=== PATIENT | female | born 1960 | race Caucasian/White ===

== ENCOUNTER → 2016-06-08 | Outpatient (CLI) | payer BC ==
[~2016-06-08] VITALS: Ht 172.7 cm; Wt 163.2 kg
[~2016-06-08] MED LIST: ASCO500T3 PO; ASPI-435 PO; CHOL100010 PO; CLR10 PO; CYAN1LOZ2 PO; FISHOIL PO; HYDR12.56 PO; LEVO200T6 PO; LISI-461 PO; METF500T PO; MULT-506 PO; NIAC500T7 PO; PANT40TA PO; PRAM0.129 PO; PRAV80TA2 PO; RANI300T2 PO; TRAM-10 PO; VITACAP36 PO; ZLF/100 PO
[2016-06-08 15:45] VITALS: BP 147/86; PULSE 116; Ht 172.7 cm; Wt 163.2 kg
== END | disposition home or self-care (01) ==
LOC: C.NEUR 14:28
PROVIDERS: ATTEND Internal Medicine Pulmonary Disease
DX: G47.33 Obstructive sleep apnea (adult) (pediatric) (principal)

== ENCOUNTER → 2016-07-08 | Outpatient (CLI) | payer BC ==
--- NOTE | 2016-07-08 14:42 | MAMMOGRAPHY REPORT ---
BILATERAL DIGITAL SCREENING MAMMOGRAM TOMOSYNTHESIS WITH CAD: 07/08/2016 CLINICAL HISTORY: Routine screening. Patient has no complaints. TECHNIQUE: Breast tomosynthesis in addition to standard 2D mammography was performed. Current study was also evaluated with a Computer Aided Detection (CAD) system. COMPARISON: Comparison is made to exams dated: 07/05/2015 mammogram, 07/03/2014 mammogram, 05/04/2013 m ammogram, 05/03/2012 mammogram, 04/28/2011 mammogram, and 09/05/2009 mammogram - [facility] enter. BREAST COMPOSITION: The tissue of both breasts is almost entirely fatty. FINDINGS: No suspicious masses, calcifications, or areas of architectural distortion are noted in e ither breast. There has been no significant interval change compared to prior exams. Small bilatera l circumscribed benign-appearing masses are not significantly changed compared to prior exams. IMPRESSION: ACR BI-RADS CATEGORY 2: BENIGN There is no mammographic evidence of malignancy. A 1 year screening mammogram is recommended. The p atient will receive written notification of the results. Approximately 10% of breast cancers are not detected with mammography. A negative mammographic repor t should not delay biopsy if a clinically suggestive mass is present. Anusha Shoemaker M.D. ah/:07/08/2016 10:15:35 Transitional Living Specialist: Slime HENSON)(), [facility] letter sent: Normal 1/2 BI-RADS Code: ACR BI-RADS Category 2: Benign
== END | disposition home or self-care (01) ==
LOC: C.MAMM 08:51
PROVIDERS: ATTEND Physician Assistant
DX: Z12.31 Encounter for screening mammogram for malignant neoplasm of breast (principal)

== ENCOUNTER → 2017-07-12 | Outpatient (CLI) | payer OTHER ==
[~2017-07-12] MED LIST changes: +PRAM0.1212 PO; -PRAM0.129 PO
--- NOTE | 2017-07-13 07:40 | MAMMOGRAPHY REPORT ---
BILATERAL DIGITAL SCREENING MAMMOGRAM TOMOSYNTHESIS WITH CAD: 07/12/2017 CLINICAL HISTORY: Routine screening. Patient has no complaints. TECHNIQUE: Breast tomosynthesis in addition to standard 2D mammography was performed. Current study was also evaluated with a Computer Aided Detection (CAD) system. COMPARISON: Comparison is made to exams dated: 07/08/2016 mammogram, 07/05/2015 mammogram, 07/03/2014 grant mogram, 05/04/2013 mammogram, 05/03/2012 mammogram, and 04/28/2011 mammogram - [facility]. BREAST COMPOSITION: The tissue of both breasts is almost entirely fatty. FINDINGS: There are multiple bilateral circumscribed subcentimeter masses in the breasts, which is a typically benign mammographic pattern. No suspicious spiculated or irregular mass, architectural dist ortion or cluster of suspicious microcalcifications is seen. IMPRESSION: ACR BI-RADS CATEGORY 1: NEGATIVE There is no mammographic evidence of malignancy. A 1 year screening mammogram is recommended. The pa tient will receive written notification of the results. Approximately 10% of breast cancers are not detected with mammography. A negative mammographic report should not delay biopsy if a clinically suggestive mass is present. Roxi Kim M.D. ay/:07/12/2017 13:21:16 [employer] Healer: Sandra HENSON)(M), [facility] letter sent: Normal 1/2 BI-RADS Code: ACR BI-RADS Category 1: Negative
== END | disposition home or self-care (01) ==
LOC: C.MAMM 08:52
PROVIDERS: ATTEND Family Medicine
DX: Z12.31 Encounter for screening mammogram for malignant neoplasm of breast (principal)

== ENCOUNTER 2019-10-10 05:13 | Inpatient (IN) ==
--- NOTE | 2019-09-21 11:31 | PAT Medication Instructions ---
Medication Instructions Date of Service September 21, 2019 Home Medications Medication Instructions Recorded miscellaneous medical supply #1 ea 01/18/19 levothyroxine 150 mcg PO QAM metformin 500 mg PO BID [Women's 50 Plus Multivitamin] 1 tab PO QPM omega-3 fatty acids-fish oil [Fish Oil] 1 cap PO QPM ropinirole 3 mg PO HS rosuvastatin 40 mg PO HS sertraline 100 mg PO HS vitamin E 400 unit PO QPM ascorbic acid (vitamin C) 500 mg tablet 500 mg PO QPM cyanocobalamin (vitamin B-12) 100 mcg tablet 500 mcg PO QPM acetaminophen [Tylenol Extra Strength] 1,000 mg PO Q6H PRN cholecalciferol (vitamin D3) 50 mcg PO QPM chromium picolinate 500 mcg PO QPM ibuprofen [Advil] 600 mg PO Q6H PRN losartan 25 mg PO HS methyl salicylate-menthol [Icy Hot] 1 applic TOPICAL HS PRN omeprazole 20 mg PO QAM ASK your surgeon for instructions ibuprofen [Advil] 600 mg PO Q6H PRN STOP taking 2 weeks before surgery If surgery is within 2 weeks, stop taking as soon as possible. omega-3 fatty acids-fish oil [Fish Oil] 1 cap PO QPM vitamin E 400 unit PO QPM chromium picolinate 500 mcg PO QPM STOP taking 24 hours before surgery methyl salicylate-menthol [Icy Hot] 1 applic TOPICAL HS PRN DO NOT take the morning of surgery metformin 500 mg PO BID Take morning of surgery With a small sip of water, OTHERWISE NOTHING TO EAT OR DRINK AFTER MIDNIGHT: levothyroxine 150 mcg PO QAM acetaminophen [Tylenol Extra Strength] 1,000 mg PO Q6H PRN (if needed, may be taken up to four hours before surgery) omeprazole 20 mg PO QAM Take evening before surgery metformin 500 mg PO BID [Women's 50 Plus Multivitamin] 1 tab PO QPM rosuvastatin 40 mg PO HS sertraline 100 mg PO HS ascorbic acid (vitamin C) 500 mg tablet 500 mg PO QPM cyanocobalamin (vitamin B-12) 100 mcg tablet 500 mcg PO QPM acetaminophen [Tylenol Extra Strength] 1,000 mg PO Q6H PRN (if needed) cholecalciferol (vitamin D3) 50 mcg PO QPM losartan 25 mg PO HS Other Notes If you have any questions please call us at [phone] or [phone] or [phone] or [phone]
--- NOTE | 2019-09-21 12:05 | Anesthesiology Consultation ---
Date of Service September 21, 2019 Assessment & Plan (1) Encounter for pre-operative examination: COVID Status: As of 09/19 nurse assessment, patient denies travel to endemic area, known exposure/sick contacts, or symptoms of COVID19. Preoperative COVID19 testing to be completed at [facility] prior to surgery. BSG AM DOS Chart Review Chart Review: Acceptable Risk for Surgery (pending surgeon-ordered PCP clearance) and Patient seen in Pre Admission Testing Teaching & Discussion Instructed NPO after midnight before surgery, except medications with 15 cc of water. Medication instructions provided according to the PAT guidelines. History Surgery Operation Date: 10/10/19 09:50 Proposed Procedures p Left Total Knee Arthroplasty - Richard Christine Smart MD Height/Weight Height: 5 ft 8 in Weight: 180 kg Allergies Allergy/AdvReac Type Severity Reaction Status Date / Time morphine Allergy Severe RESPIRATORY Verified 09/20/19 14:41 DISTRESS/KIDNEY FAILURE oxycodone Allergy Severe RESPIRATORY Verified 09/20/19 14:41 DISTRESS/KIDNEY FAILURE Penicillins Allergy Intermediate HIVES Verified 09/20/19 14:41 Corticosteroids Allergy Unknown FLUSHED Verified 09/20/19 14:41 (Glucocorticoids) levofloxacin [From Levaquin] Allergy Unknown Unknown Verified 09/20/19 14:41 dexamethasone AdvReac Mild flushed Verified 09/20/19 14:41 Medications Home Medications Medication Instructions Recorded Confirmed Last Taken levothyroxine 150 mcg PO QAM 11/03/18 09/20/19 11/03/18 metformin 500 mg PO BID 11/03/18 09/20/19 11/02/18 cd-sal-[id number]-calcium carb-K1 1 tab PO QPM 11/03/18 09/20/19 11/02/18 [Women's 50 Plus Multivitamin] omega-3 fatty acids-fish oil [Fish 1 cap PO QPM 11/03/18 09/20/19 11/02/18 Oil] ropinirole 3 mg PO HS 11/03/18 09/20/19 11/02/18 rosuvastatin 40 mg PO HS 11/03/18 09/20/19 11/02/18 sertraline 100 mg PO HS 11/03/18 09/20/19 11/02/18 vitamin E 400 unit PO QPM 11/03/18 09/20/19 11/02/18 ascorbic acid (vitamin C) 500 mg 500 mg PO QPM tab 01/18/19 09/20/19 Unknown tablet cyanocobalamin (vitamin B-12) 100 500 mcg PO QPM tab 01/18/19 09/20/19 Unknown mcg tablet miscellaneous medical supply #1 ea 01/18/19 04/10/19 Unknown acetaminophen [Tylenol Extra 1,000 mg PO Q6H PRN 09/20/19 09/20/19 Unknown Strength] cholecalciferol (vitamin D3) 50 mcg PO QPM 09/20/19 09/20/19 Unknown [Vitamin D3] chromium picolinate 500 mcg PO QPM 09/20/19 09/20/19 Unknown ibuprofen [Advil] 600 mg PO Q6H PRN 09/20/19 09/20/19 Unknown losartan 25 mg PO HS 09/20/19 09/20/19 Unknown methyl salicylate-menthol [Icy Hot] 1 applic TOPICAL HS PRN 09/20/19 09/20/19 Unknown omeprazole 20 mg PO QAM 09/20/19 09/20/19 Unknown Past Medical History Medical History Anxiety (Chronic) Arthritis Bilateral lower extremity edema (Acute) Chronic back pain Diabetes mellitus, type 2 GERD (gastroesophageal reflux disease) Headache (Acute) HTN (hypertension) (Chronic) Hx pulmonary embolism In her late 20s, 2/2 OCPs Post-surgical hypothyroidism (Chronic) 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 RIGHT LOBE Restless leg Sleep apnea CPAP SOB (shortness of breath) on exertion 1 FLIGHT STAIRS Temporomandibular joint disorder RIGHT, CLICKS HAS NEVER LOCKED Exercise / Class Metabolic Activity III < 4 Walking/Shop/Light housework (+SOB with minimal activity 2/2 obesity and pain, denies chest pain) Past Family History Family History Mother Family history of diabetes mellitus Past Surgical History Surgical History History of bladder surgery SLING History of cardiac cath MANY YRS AGO-NO STENTS-DX'D GERD History of colonoscopy History of esophagogastroduodenoscopy (EGD) History of hysterectomy TOTAL History of tonsillectomy and adenoidectomy History of total knee replacement RIGHT Past Anesthesia History No Hx of Anesthesia Complications and No Family Hx of Anesthesia Complications History of PONV No Hx of PONV and No Hx of Motion Sickness Social History Smoking Status: Never smoker Do You Dip or Chew Tobacco: No Hx Alcohol Use: No Hx Substance Use: No Review of Systems Pt denies any recent chest pain, shortness of breath above baseline, palpitations, cough, fever or URI. Physical Exam Vital Signs BP: 139/85 P: 78bpm SPO2: 95% RA T: 98.1 F R: 18 Constitutional + morbidly obese ENMT Mouth: no chipped teeth and no loose teeth Thyromental Distance: > or= 3.5 Finger Breadths (4) Mallampati Class: II Crowded/narrow posterior oropharynx. Neck + short neck and + thick neck (very); neck extension not limited Respiratory normal respiratory effort Auscultation: lungs clear to auscultation bilaterally Cardiovascular Rate/Rhythm: regular rate and regular rhythm Heart Sounds: no murmur Extremities: + edema (B/L 1+ nonpitting) Testing Laboratory Results 09/21/19 12:16 09/21/19 12:16 PT 11.0 Seconds (9.0-12.0) 09/21/19 12:16 INR 1.0 (0.9-1.1) 09/21/19 12:16 APTT 27.9 Seconds (21.0-31.0) 09/21/19 12:16 Blood Type O Positive 09/21/19 12:16 Antibody Screen NEGATIVE 09/21/19 12:16 A1C 6.8% on 09/06/19 Electrocardiogram Date: 11/03/18 Findings: + NSR @ (78bpm) and + no change from (09/04/17) Chest X-Ray Date: 11/03/18 Findings: + NAD
[2019-09-21 13:10] LABS: Partial Thromboplastin Time 27.9 Seconds (21.0-31.0)
[2019-09-21 13:24] LABS: Basophils # (auto) 0.01 K/uL (0-0.2); Basophils % (auto) 0.1 %; Eosinophils # (auto) 0.19 K/uL (0-0.5); Eosinophils % (auto) 2.5 %; Hematocrit (blood only) 40.3 % (37-47); Hemoglobin 13.1 g/dL (12.0-16.0); Immature Granulocytes # (auto) 0.02 K/uL (0.00-0.02); Immature Granulocytes % (auto) 0.3 %; Lymphocytes # (auto) 1.61 K/uL (1.2-3.4); Lymphocytes % (auto) 21.6 %; Mean Corpuscular Hemoglobin 30.3 pg (25-34); Mean Corpuscular Hgb Conc 32.5 g/dL (32-36); Mean Corpuscular Volume 93.3 fL (80-100); Mean Platelet Volume 10.2 fL (7.4-10.4); Monocytes # (auto) 0.54 K/uL (0.11-0.59); Monocytes % (auto) 7.2 %; Neutrophils % (auto) 68.3 %; Platelet Count 184 K/uL (130-400); RDW Coefficient of Variation 14.4 % (11.5-14.5); RDW Standard Deviation 49.3 fL (36.4-46.3); Red Blood Count 4.32 M/uL (4.2-5.4); White Blood Count 7.47 K/uL (4.8-10.8)
[2019-09-21 16:06] LABS: Albumin Level 3.7 gm/dl (3.4-5.0); BUN Creatinine Ratio 17.7 (10-20); Bilirubin Direct 0.1 mg/dl (0-0.2); Calcium 8.9 mg/dl (8.5-10.1); Creatinine Clr Calc Pharmacy 78.2 ml/min; Est GFR (African American) 49.7; Est GFR (Non-African American) 42.9; Potassium 4.4 mmol/L (3.5-5.1)
[2019-09-21 16:07] LABS: Bilirubin,Total 0.4 mg/dl (0.2-1); Total Protein 7.5 gm/dl (6.4-8.2)
[2019-10-10] MEDS ORDERED: LR 15ML/HR IV SCH (06:00)
[2019-10-10] MEDS ORDERED: CeleBREX 200 MG CAP PO SCH (06:00)
[2019-10-10] MEDS ORDERED: TRANEXAMIC ACID 1,000 MG **IV Pre-op IV SCH (06:00)
[2019-10-10] MEDS ORDERED: ROPIVACAINE 0.5% HCL/PF 150 MG, BUPIVACAINE 0.5% MPF 30 ML, EPINEPHrine 0.15 MG, Ketoro... INFIL SCH (06:00)
[2019-10-10] MEDS ORDERED: LR 60ML/HR IV SCH (06:00)
[2019-10-10] MEDS ORDERED: TRANEXAMIC ACID 1,000 MG **IV Intra-op IV SCH (06:00)
[2019-10-10] MEDS ORDERED: MIDAZOLAM HCL 1 MG/ML 2ML VIAL ONE ×3 (06:26→07:21)
[2019-10-10] MEDS ORDERED: PROPOFOL IV EMULSION 10 MG/ML 20 ML VIAL IV ONE ×5 (06:26→08:16)
[2019-10-10] MEDS ORDERED: fentaNYL citrate 100 MCG/2 ML VIAL ONE ×4 (06:26→08:59)
[2019-10-10] MEDS ORDERED: DEXAMETHASONE SOD INJ 4 MG/ML VIAL ONE (06:29)
[2019-10-10] MEDS ORDERED: BUPIVACAINE/EPINEPHRINE 0.25% 1:200,000 30 ML VIAL ONE (06:29)
[2019-10-10] MEDS ORDERED: BUPIVACAINE 0.5 % 5 MG/1 ML PF 10ML VIAL ONE (06:29)
--- NOTE | 2019-10-10 06:38 | History & Physical Bridge Note ---
Date of Service October 10, 2019 History & Physical Bridge Note I have examined the patient, reviewed the History & Physical and in the interval since the performance of the History & Physical I have noted the following changes of clinical significance: no changes noted Patient is aware of the risks, is asymptomatic, and tested negative for COVID- 19.
[2019-10-10] MEDS ORDERED: CEFAZOLIN 3000MG/72.5 ML BAG IV ONE (06:49)
[2019-10-10] MEDS ORDERED: ORTHO JOINT ANESTHETIC ONE (06:53)
[2019-10-10] MEDS ORDERED: ONDANSETRON INJ 2 MG/ML 2 ML VIAL IV PRN ×2 (07:00→12:22)
[2019-10-10] MEDS ORDERED: ePHEDrine sulfate 50 MG/ML AMP IV PRN (07:00)
[2019-10-10] MEDS ORDERED: ATROPINE SULFATE 0.1 MG/ML 10ML SYR IV PRN (07:00)
[2019-10-10] MEDS ORDERED: GLYCOPYRROLATE 0.2 MG/ML VIAL ONE (07:31)
[2019-10-10] MEDS ORDERED: ONDANSETRON INJ 2 MG/ML 2 ML VIAL ONE (07:31)
[2019-10-10] MEDS ORDERED: SUCCINYLCHOLINE CHLORIDE 20 MG/ML 10 ML VIAL IV ONE (08:05)
[2019-10-10] MEDS ORDERED: GELATIN SPONGE SZ 100 ONE (08:11)
[2019-10-10] MEDS ORDERED: ROCURONIUM BROMIDE 10 MG/ML 5 ML VIAL IV ONE (08:14)
--- NOTE | 2019-10-10 10:35 | Post Operative Brief Note ---
Immediate Post Op Note v1 Date of Surgery October 10, 2019 Pre & Post Diagnosis Operation Date: 10/10/19 07:00 Pre-Op Diagnosis: Left Knee Osteoarthritis Post-Op Diagnosis: Left Knee Osteoarthritis I identified the patient and participated in the time-out.: Yes Procedure Operation Date: 10/10/19 07:00 Actual Procedures p Left Total Knee Arthroplasty(Left) - Richard Smart MD Surgeon Richard Smart MD Pattern And Chain Maker Jerica oRse PA-C (No fellow avail) Estimated Blood Loss 800 Findings Consistent with Post-Op Diagnosis Fluids 2200 cc Specimens Left knee contents Drains Other (Privena) Anesthesia Type General Regional Complications none
--- NOTE | 2019-10-10 10:36 | Operative Report ---
Post Operative Report Pre & Post Diagnosis Operation Date: 10/10/19 07:00 Pre-Op Diagnosis: Left Knee Osteoarthritis Post-Op Diagnosis: Left Knee Osteoarthritis I identified the patient and participated in the time-out.: Yes Procedure Operation Date: 10/10/19 07:00 Actual Procedures p Left Total Knee Arthroplasty(Left) - Richard Smart MD Surgeon Richard Smart MD Can Sterilizer Jerica Rose PA-C (No fellow avail) Estimated Blood Loss 800 Findings See Below Examined Under Anesthesia: ROM -- There was 2 degrees to 90 degrees of flexion Ligamentous examination -- revealed stable [place], posterior drawer, varus and valgus stress at 2 and 30 degrees. [place] Type IV changes of Medial compartment, type II-III changes LFC, type I changes Patella. Fluids 2200 cc Specimens Left knee contents Drains Privena Anesthesia Type General Regional Complications none Indications This is a 59-year-old female who has clinical and radiographic findings consistent with osteoarthritis of the a left knee, that has failed to respond to conservative treatment. I recommended that a left total knee replacement be performed. The patient understands the risks of surgery, which include but not limited to: bleeding, infection, re-operation, damage to nerves and arteries, continued knee pain, knee stiffness, DVT, and . The patient understands all of these instructions and explanations, all of his questions have been satisfactorily addressed and the patient has elected to proceed. Informed consent was signed. Description of Procedure IMPLANTS: 1. Femur: Triathlon #4 Left PS, distal pegs x 2. 2. Tibia: Triathlon #4 [place] with 12 x 50 mm stem. 3. Insert: Triathlon #4 x 9 mm PS X3 poly. 4. Simplex cement. PROCEDURE: The patient was taken to the Operating Room and placed in the supine position after spinal and adductor canal nerve block was administered. My initials and a multidisciplinary time-out were used to identify the left leg as the correct operative limb. A tourniquet was placed high in the thigh. Prior to the incision, 3 grams of intravenous Ancef were given. The left leg was then prepped and draped in a standard sterile fashion. An Esmarch was used to exsanguinate the leg and the tourniquet was intially inflated to 250 mmHg, it was later increased to 350, but was deflated as it created a venous tourniquet. The planned mid-line 20 cm incision was created exposing the extensor mechanism. The medial parapatellar arthrotomy was made and a partial lateral patellar release to allow the patella to be everted. The patient was placed under general anesthesia as she moving the operative limb. The patella was evaluated first and was in good shape and was left alone. The femur was addressed next and the guide stella was placed intramedullary. The initial cutting block was placed with 6 degrees of valgus and removing 8 mm for the distal cut. The cut was made and the 4-in-1 cutting block for a size 4 femur was placed. These cuts and the cuts to place the box were made in the standard fashion. The peg holes were drilled in the standard fashion. Our attention was then drawn to the tibia cut with the external cutting guide, taking 4 mm from the medial low side. There was sufficient extension and flexion gap to fit a 9 mm spacer. A #4 Tibial baseplate fit well. A trial with a 9 mm spacer showed excellent stability in both flexion and extension, with good ligament balance. Range of motion of 0-100 degrees. The tibial baseplate was pinned and the final preparation for the keel and stem was made. A stem was used due to avoid subsidence. All the trial components were tested again, with good stability and thumbs free tracking of the patella. All components were removed. Hemostasis was obtained throughout. 90 ml of total knee cocktail were injected into the soft tissues and periosteum. A bone plug was placed in the femur and covered with bone wax. All surfaces were copiously irrigated prior to placement of the components. The femoral component and Tibial baseplate were placed with the first batch of Simplex cement followed by the 9 mm X3 poly was placed. The partial lateral release was closed with 0 Vicryl and there components had excellent stability and thumbs free patellar tracking. The extensor mechanism was closed with 1-0 and 0 Vicryl with the knee bent approximately 60 degrees in a standard fashion. The peritenon and deep fascia was closed with 2-0 Vicryl. The subcutaneous layer was closed with 3-0 Vicryl. The skin was closed with Zipline and shield. The limb was cleaned and dried. A Prevena dressing was placed overtop followed by, sterile Webril, and a foot to thigh Jass bandage. The patient was then transferred to the Recovery Room in stable condition. The sponge and needle counts were correct. POST-OP INSTRUCTIONS: The patient will be WBAT. The patient will be admitted to the hospital. The patient will use the walker when ambulating and standing until good quad control is achieved. Labs will be obtained during the stay. DVT prophylaxis will included Lovenox 30mg BID for 3 weeks starting tomorrow am as she did have a spinal followed by aspirin for 3 weeks, TEDs, and mechanical foot pumps. The Prevena dressing will be changed postop day #7 and covered with a Silverlon dressing. I attest to the content of the Intraoperative Record and any orders documented therein. Any exceptions are noted below.
[2019-10-10] MEDS: fentaNYL citrate 100 MCG/2 ML VIAL IV PRN ×2 (10:57→11:03)
--- NOTE | 2019-10-10 11:04 | Operative Report ---
Post Operative Report Pre & Post Diagnosis Operation Date: 10/10/19 07:00 Pre-Op Diagnosis: Left Knee Osteoarthritis Post-Op Diagnosis: Left Knee Osteoarthritis I identified the patient and participated in the time-out.: Yes Procedure Operation Date: 10/10/19 07:00 Actual Procedures p Left Total Knee Arthroplasty(Left) - Rcihard Smart MD Surgeon Richard Smart MD Cinder Block Maker Jerica Rose PA-C (No fellow avail) Estimated Blood Loss 800 Findings Consistent with Post-Op Diagnosis Specimens bone and soft tissue Indications See Dr Smart operative report for details. Description of Procedure See Dr Smart operative report for details. I was veterinary assistant during entire case to include prepping, draping, limb an instrument handling, wound closure, dresssings. I attest to the content of the Intraoperative Record and any orders documented therein. Any exceptions are noted below.
--- NOTE | 2019-10-10 11:10 | Anesthesiology Progress Note ---
Date of Service October 10, 2019 Anesthesia Post Procedure Vital Signs Vital Signs: Temp Pulse Pulse Resp BP Pulse Ox 10/10/19 11:00 87 12 124/72 96 10/10/19 10:51 36 C L 90 18 106/71 96 10/10/19 05:46 37.1 C 85 18 151/74 H 96 Pain Intensity Right Knee: Pain Intensity: 5 Transfer of Care Handoff Completed per policy Notes Mental Status: alert / awake / arousable Patient Amnestic to Procedure: Yes Nausea / Vomiting: adequately controlled Pain: adequately controlled Airway Patency, RR, SpO2: stable & adequate BP & HR: stable & adequate Hydration State: stable & adequate Neuraxial Anesthesia: was administered and sensory block is resolving Anesthetic Complications: no major complications apparent
--- NOTE | 2019-10-10 11:25 | XRay Report ---
XR knee LT 1 or 2V routine HISTORY: 59 years-old Female Surgical Post Op [knee total joint arthroplasty COMPARISON: Left knee radiographs 09/06/2019 TECHNIQUE: 2 views of the left knee FINDINGS: Left knee total joint arthroplasty and patellar resurfacing. Expected postoperative soft tissue swell ing and deep tissue air with surgical drainage catheter. No acute fracture or retained foreign body. IMPRESSION: Left knee total joint arthroplasty with expected postoperative findings. ACT 112: Negative or not required by law. The above report was generated using voice recognition software. It may contain grammatical, syntax o r spelling errors. Electronically signed by: Mushtaq Newby M.D. 10/10/2019 11:24 AM
[2019-10-10] MEDS ORDERED: DiphenhydrAMINE HCL 50 MG/ML VIAL IV PRN (12:22)
[2019-10-10] MEDS ORDERED: METOCLOPRAMIDE HCL INJ 5 MG/ML 2 ML VIAL IV PRN (12:22)
[2019-10-10] MEDS ORDERED: NALOXONE HCL 0.4 MG/1 ML VIAL/CARP IV PRN (12:22)
[2019-10-10] MEDS ORDERED: ALUMINUM/MAGNESIUM SUSP 30 ML UDC PO PRN (12:22)
[2019-10-10] MEDS ORDERED: MAGNESIUM HYDROXIDE SUSP 30 ML UDC PO PRN (12:22)
[2019-10-10] MEDS ORDERED: bisacodyL 10 MG SUPP PR PRN (12:22)
[2019-10-10] MEDS ORDERED: PHARMACY GLYCEMIC MGMT CONSULT PRN (12:33)
[2019-10-10] MEDS ORDERED: INSULIN GLARGINE SOLOSTAR 100 UNITS/ML 3 ML PEN SC ONE (12:45)
[2019-10-10] MEDS: SODIUM CHLORIDE 0.9% 1000ML 1,000 ML IV SCH ×2 (13:20→22:46)
[2019-10-10] MEDS: ACETAMINOPHEN 500 MG TAB PO SCH ×2 (13:20→22:37)
[2019-10-10] MEDS: INSULIN ASPART 100 UNITS/ML 3 ML PEN SC SCH ×3 (13:28→20:20)
--- NOTE | 2019-10-10 14:33 | Orthopedic Progress Note ---
Date of Service October 10, 2019 Assessment & Plan (1) Osteoarthritis of left knee: POD #0 s/p Left TKA, doing as well as expected. Resume DM diet. WBAT with walker and assistance as needed. OOB to chair. Continue pain control. check labs tomorrow. DVT prophylaxis: TEDs 3 weeks, foot pumps while in hospital, Lovenox start 10/11/2019 am BID for 3 weeks followed by ASA 325mg BID for another 3 weeks. PT/OT. Showed patient her x-rays. D/C planning. Medicine consult for medical management. Present on Admission?: Yes Admission and Anticipated Discharge Date Admission Date: October 10, 2019 Subjective Doing alright Review of Systems Review of Systems: All systems reviewed & are unremarkable except as noted in HPI & below Physical Exam Physical Exam: LLE: Prevena is in place functioning well. Dressing intact. Calf soft non-tender. Moving ankle and toes. Able to preform a straight leg raise. Sensation to light touch intact. BCR < 2 sec. Results & Data ([facility]) Vital Signs (Past 12 Hours) Vital Signs Temp Pulse Pulse Resp BP Pulse Ox 10/10/19 13:57 70 16 122/70 98 10/10/19 12:55 66 16 119/75 99 10/10/19 12:30 77 16 118/73 97 10/10/19 12:00 36.4 C L 86 16 116/82 92 10/10/19 11:40 83 15 105/73 97 10/10/19 11:30 76 16 90/69 L 95 10/10/19 11:20 36.4 C L 84 19 114/74 95 10/10/19 11:10 85 14 96/77 L 97 10/10/19 11:00 87 12 124/72 96 10/10/19 10:51 36 C L 90 18 106/71 96 10/10/19 05:46 37.1 C 85 18 151/74 H 96 Diagnostic Findings AP and lateral x2 of the left knee, shows cemented femoral and tibial components to be in good position, [place] patella. Incidental finding of overlying Prevena dressing.
--- NOTE | 2019-10-10 15:11 | Pharmacy Report ---
Glycemic Control Consultation - Date of Service October 10, 2019 - Scope Scope: Glycemic Pharmacist consulted for glycemic control and to write orders per [facility] inpatient glycemic control protocol. - Objective Weight: 181.522 kg Accuchecks BSG (last 24hrs): 10/10/19 10/10/19 10/10/19 05:46 10:55 12:20 POC Glucose 140 H 180 H 195 H - Recent Pertinent Medications Outpatient Anti-diabetic Regimen: * Metformin 500 mg BID * A1c = pending Risk Factors for Insulin Resistance: * Steroids: dexamethasone 4 mg IV x 1, 8 mg PO starting 10/10 * Infection: * Pressors: * IVF: * Recent Surgery: POD #0 * Diet: T2DM * Mechanical Ventilation: - Assessment & Plan Assessment & Plan: ASSESSMENT: * Ms. Sloan is admitted following left total knee arthroplasty * Received dexamethasone 4 mg IV x 1 in OR, BSGs 180/195, therefore will be more aggressive with initial regimen * Will give full weight based stress of 2 (based on adjusted body weight) x 1 now * Start novolog with adjusted weight stress of 3 carb ratio, stress of 2 correction factor PLAN FOR INPATIENT GLYCEMIC CONTROL: * Holding outpatient oral diabetes medications * Basal insulin * Lantus 38 units x 1 * Bolus insulin * NovoLog per scale ACHS or Q6hrs while NPO * Goal Range: Low 120 mg/dL - High 160 mg/dL * Correction Factor: 20 mg/dL/unit * Nutritional / Prandial insulin per carb ratio of 1 unit per 5 grams CHO consumed * Please note that the plan above was derived based on current level of insulin resistance and hospital stress. These recommendations are appropriate for inpatient admission only. Plan of care upon discharge will need to be reassessed to avoid potential outpatient hypo/hyperglycemia. Thank you.
[2019-10-10] MEDS ORDERED: GLUCOSE 40% GEL 15 GM TUBE PO PRN (15:15)
[2019-10-10] MEDS ORDERED: DEXTROSE 50% 50 ML SYRINGE IV PRN (15:15)
[2019-10-10] MEDS ORDERED: CARBOHYDRATES FOR HYPOGLYCEMIA PO PRN (15:15)
[2019-10-10] MEDS ORDERED: GLUCAGON FOR INJ 1 MG VIAL SQ PRN (15:15)
[2019-10-10] MEDS ORDERED: GLUCOSE 10 TABS/TUBE PO PRN (15:15)
--- NOTE | 2019-10-10 15:49 | Hospitalist Consultation ---
Date of Consultation October 10, 2019 Assessment & Plan (1) Osteoarthritis of left knee: S/p TKA 10/09 Pain control, dvt proph per primary Monitor for acute blood loss (2) Diabetes: Type II, controlled A1c 6.8% Pharm consult for glycemic management (3) HTN (hypertension): Hold losartan for tomorrow morning to avoid post op hypotension PRP am (4) Hypothyroid: Continue home levothyroxine (5) Hyperlipemia: Continue home statin (6) GERD (gastroesophageal reflux disease): Continue home PPI Supervising Physician Co-Signing Physician Notes Patient seen and examined with Izzy HUERTA. I agree with her exam findings, review of systems, assessment and plan. I personally reviewed the lab work and imaging as well. patient doing well post op, no immediate complications encourage deep breathing, advance diet check labs in AM - HTN: hold ARB until BMP checked - s/p TKA: management per ortho, encourage ISB use History of Present Illness Attending Physician: Richard Smart MD History of Present Illness Ms. Sloan is post op today. She is feeling well, minimal pain. No complaints. Allergies Allergy/AdvReac Type Severity Reaction Status Date / Time morphine Allergy Severe RESPIRATORY Verified 09/20/19 14:41 DISTRESS/KIDNEY FAILURE oxycodone Allergy Severe RESPIRATORY Verified 09/20/19 14:41 DISTRESS/KIDNEY FAILURE Penicillins Allergy Intermediate HIVES Verified 09/20/19 14:41 Corticosteroids Allergy Unknown FLUSHED Verified 09/20/19 14:41 (Glucocorticoids) levofloxacin [From Levaquin] Allergy Unknown Unknown Verified 09/20/19 14:41 dexamethasone AdvReac Mild flushed Verified 09/20/19 14:41 Home Medications Home Medications Medication Instructions Recorded Confirmed Type levothyroxine 150 mcg PO QAM 11/03/18 09/20/19 History metformin 500 mg PO BID 11/03/18 10/10/19 History ac-nly-ujgtc-calcium carb-K1 1 tab PO QPM 11/03/18 10/10/19 History [Women's 50 Plus Multivitamin] omega-3 fatty acids-fish oil [Fish 1 cap PO QPM 11/03/18 10/10/19 History Oil] ropinirole 3 mg PO HS 11/03/18 10/10/19 History rosuvastatin 40 mg PO HS 11/03/18 10/10/19 History sertraline 100 mg PO HS 11/03/18 10/10/19 History vitamin E 400 unit PO QPM 11/03/18 10/10/19 History ascorbic acid (vitamin C) 500 mg 500 mg PO QPM tab 01/18/19 09/20/19 History tablet cyanocobalamin (vitamin B-12) 100 500 mcg PO QPM tab 01/18/19 09/20/19 History mcg tablet miscellaneous medical supply #1 ea 01/18/19 04/10/19 Rx acetaminophen [Tylenol Extra 1,000 mg PO Q6H PRN 09/20/19 10/10/19 History Strength] cholecalciferol (vitamin D3) 50 mcg PO QPM 09/20/19 09/20/19 History [Vitamin D3] chromium picolinate 500 mcg PO QPM 09/20/19 09/20/19 History ibuprofen [Advil] 600 mg PO Q6H PRN 09/20/19 09/20/19 History losartan 25 mg PO HS 09/20/19 10/10/19 History methyl salicylate-menthol [Icy Hot] 1 applic TOPICAL HS PRN 09/20/19 10/10/19 History omeprazole 20 mg PO QAM 09/20/19 09/20/19 History Patient History Medical History Anxiety (Chronic) Arthritis Bilateral lower extremity edema (Acute) Chronic back pain Diabetes mellitus, type 2 GERD (gastroesophageal reflux disease) Headache (Acute) HTN (hypertension) (Chronic) Hx pulmonary embolism In her late 20s, 2/2 OCPs Post-surgical hypothyroidism (Chronic) 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 RIGHT LOBE Restless leg Sleep apnea CPAP SOB (shortness of breath) on exertion 1 FLIGHT STAIRS Temporomandibular joint disorder RIGHT, CLICKS HAS NEVER LOCKED Surgical History History of bladder surgery SLING History of cardiac cath MANY YRS AGO-NO STENTS-DX'D GERD History of colonoscopy History of esophagogastroduodenoscopy (EGD) History of hysterectomy TOTAL History of tonsillectomy and adenoidectomy History of total knee replacement RIGHT Family History Mother Family history of diabetes mellitus Social History Preferred Language: Uzbek Communication Ability: Effective 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: No Beliefs That Will Affect Care: None marital status: Current Living Situation: Spouse and Parent Other Information That Helps Us Care for You: No Feels Safe at Home: Yes Safety Concerns: Feels Safe At This Time Smoking Status: Never smoker Do You Dip or Chew Tobacco: No ; Second Hand Exposure: Yes (SPOUSE/FATHER USED TO SMOKE) ; Hx Alcohol Use: No Hx Substance Use: No Review of Systems Constitutional: no fever, no chills and no body aches Respiratory: no cough, no chest congestion and no dyspnea Cardiovascular: no chest pain, no dyspnea and no palpitations Gastrointestinal: no abdominal pain, no nausea and no vomiting Genitourinary: no dysuria and no urinary hesitancy Musculoskeletal: no back pain and no joint pain Integumentary: no rash Physical Exam Physical Exam: General: no distress Eyes: normal inspection, PERLL Respiratory: chest non tender, clear to auscultation, normal breath sounds, no respiratory distress, no accessory muscle use Cardiac: regular rate and rhythm, no rub or gallop, no murmur, no edema, no jvd GI/: active bowel sounds, no abd pain or tenderness, soft, non distended Extremities: normal range of motion, normal strength, non tender Neuro/Psych: alert and oriented x 3, normal mood and affect Skin: normal color, dry Results & Data Results & Data ([facility]) Vital Signs (Past 12 Hours) Vital Signs Temp Pulse Pulse Pulse Resp BP Pulse Ox 10/10/19 14:58 36.5 C 82 20 109/72 94 10/10/19 13:57 70 16 122/70 98 10/10/19 12:55 66 16 119/75 99 10/10/19 12:30 77 16 118/73 97 10/10/19 12:00 36.4 C L 86 16 116/82 92 10/10/19 11:40 83 15 105/73 97 10/10/19 11:30 76 16 90/69 L 95 10/10/19 11:20 36.4 C L 84 19 114/74 95 10/10/19 11:10 85 14 96/77 L 97 10/10/19 11:00 87 12 124/72 96 10/10/19 10:51 36 C L 90 18 106/71 96 10/10/19 05:46 37.1 C 85 18 151/74 H 96 PG Care Time/CCT Total # of Minutes Spent Total Time Spent with Patient: Total time spent is greater than 50% in coordination of care (as documented) at patient's floor/unit and/or counseling patient: Coding Level of Care Code 34155 Inpt Consult Level 4 Diagnoses Osteoarthritis of left knee M17.12 Diabetes E11.9 HTN (hypertension) I10 Hypothyroid E03.9 Hyperlipemia E78.5 GERD (gastroesophageal reflux disease) K21.9
[2019-10-10] MEDS: CEFAZOLIN 2000MG 2,000 MG/15 ML SYR IV SCH ×2 (15:55→23:37)
[2019-10-10] MEDS: OXYCODONE HCL IR 5 MG TAB (IMMEDIATE RELEASE) PO PRN ×2 (17:40→23:46)
[2019-10-10] MEDS: FERROUS GLUCONATE 324 MG TAB PO SCH (17:41)
[2019-10-10] MEDS: ASCORBIC ACID 500 MG TAB PO SCH (17:42)
[2019-10-10] MEDS: ROPINIROLE HCL 1 MG TABLET PO SCH (20:13)
[2019-10-10] MEDS: CHOLECALCIFEROL 1,000 UNITS 25 MCG TAB PO SCH (20:14)
[2019-10-10] MEDS: SENNA 8.6 MG TAB PO SCH (20:15)
[2019-10-10] MEDS: SERTRALINE HCL 100 MG TABLET PO SCH (20:17)
[2019-10-10] MEDS: CYANOCOBALAMIN 500 MCG TABLET (VITAMIN B-12) PO SCH (20:17)
[2019-10-10] MEDS: ROSUVASTATIN CALCIUM 20 MG TAB PO SCH (20:18)
[2019-10-10] MEDS: DOCUSATE SODIUM 100 MG CAP PO SCH (20:24)
[2019-10-10] MEDS ORDERED: LOSARTAN POTASSIUM 25 MG TAB PO SCH (21:00)
[2019-10-11] MEDS: HYDROmorphone INJ 0.5 MG/0.5 ML SYR IV PRN ×2 (03:10→10:24)
[2019-10-11] MEDS ORDERED: dexAMETHasone 4 MG TAB PO SCH (06:00)
[2019-10-11] MEDS: LEVOTHYROXINE SODIUM 150 MCG TABLET PO SCH (06:04)
[2019-10-11] MEDS: ACETAMINOPHEN 500 MG TAB PO SCH ×3 (06:10→21:44)
[2019-10-11 06:22] LABS: Hematocrit (blood only) 29.7 % (37-47); Hemoglobin 9.6 g/dL (12.0-16.0); Mean Corpuscular Hemoglobin 30.4 pg (25-34); Mean Corpuscular Hgb Conc 32.3 g/dL (32-36); Mean Platelet Volume 9.5 fL (7.4-10.4); Platelet Count 212 K/uL (130-400); RDW Standard Deviation 48.3 fL (36.4-46.3); Red Blood Count 3.16 M/uL (4.2-5.4); White Blood Count 11.34 K/uL (4.8-10.8)
[2019-10-11 06:41] LABS: BUN Creatinine Ratio 17.7 (10-20); Calcium 7.9 mg/dl (8.5-10.1); Creatinine Clr Calc Pharmacy 71.2 ml/min; Est GFR (African American) 44.1; Potassium 4.7 mmol/L (3.5-5.1)
[2019-10-11] MEDS ORDERED: INSULIN GLARGINE SOLOSTAR 100 UNITS/ML 3 ML PEN SC ONE (07:15)
[2019-10-11 07:27] LABS: Estimated Average Glucose 154 mg/dl
[2019-10-11] MEDS ORDERED: LACTATED RINGER'S 1,000 ML IV SCH (08:15)
[2019-10-11] MEDS: INSULIN ASPART 100 UNITS/ML 3 ML PEN SC SCH ×4 (08:34→20:50)
[2019-10-11] MEDS: FERROUS GLUCONATE 324 MG TAB PO SCH ×2 (08:34→16:31)
[2019-10-11] MEDS: ENOXAPARIN INJ 30 MG/0.3 ML SYR SQ SCH ×2 (08:34→20:08)
[2019-10-11] MEDS: ASCORBIC ACID 500 MG TAB PO SCH ×2 (08:35→16:31)
[2019-10-11] MEDS: MULTIVITAMIN TAB PO SCH (08:35)
[2019-10-11] MEDS: PANTOprazole 40 MG TAB PO SCH (08:35)
[2019-10-11] MEDS: DOCUSATE SODIUM 100 MG CAP PO SCH ×2 (08:37→20:12)
--- NOTE | 2019-10-11 09:08 | Orthopedic Progress Note ---
Date of Service October 11, 2019 Assessment & Plan (1) Osteoarthritis of left knee: POD #1 s/p Left TKA, doing as well as expected. Hgb 9.6. Asymptomatic. Continue to monitor. Continue DM diet. WBAT with walker and assistance as needed. Continue PT/OT. Continue pain control. Continue Ice. Continue elevation. DVT prophylaxis: knee high TEDs 3 weeks, foot pumps while in hospital, Lovenox start 10/11/2019 am BID for 3 weeks followed by ASA 325mg BID for another 3 weeks. Post-op dressings removed. Continue Prevena wound vac. SAMUEL applied. D/C planning to home with HHPT. Smart to see this PM. Possible DC in PM or tomorrow 10/11. Appreciate Medicine input for medical management. I, Dr. Smart, saw and examined the patient and discussed the management with my PA. I reviewed my PAs note and agree with the documented findings and the plan of care I developed. Will keep patient overnight as she used IV pain meds today after PT. Patient is also considering going to [facility] for rehab. Will re-asses tomorrow if only taking pain meds and approved for [facility] and bed available will likely d/c tomorrow. Admission and Anticipated Discharge Date Admission Date: October 10, 2019 Subjective Patient participating in OT this am. States overall pain fairly controlled. Required 1 dose of IV pain med early AM to help sleep. Denies f/c/s, CP, SOB, lightheadedness, or dizziness. Tolerating PO diet. No issues with Provena. However states post-op dressings are "bunching up behind the knee". Physical Exam Physical Exam: Ambulating with CG with walker. Left leg post-op dressings slipping down. Provena intact. NV intact B LE. Palpable DP and PT pulses. Sensation intact to light touch. B neg homans. Calves soft. L LE with 1+ PE. Left knee bends to 85 degrees easily at rest. Results & Data ([facility]) Vital Signs (Past 12 Hours) Vital Signs Temp Pulse Pulse Resp BP Pulse Ox 10/11/19 07:14 36.5 C 95 H 16 113/70 95 10/11/19 03:07 92 H 18 91 10/11/19 02:48 36.7 C 98 H 18 137/80 92 10/10/19 23:43 93 10/10/19 23:04 36.5 C 96 H 18 112/72 91 10/10/19 21:57 87 18 90 Laboratory Results 10/11/19 10/11/19 10/11/19 Range/Units 08:16 05:53 05:53 WBC (4.8-10.8) K/uL RBC (4.2-5.4) M/uL Hgb (12.0-16.0) g/dL Hct (37-47) % MCV (80-100) fL MCH (25-34) pg MCHC (32-36) g/dL RDW Std Deviation (36.4-46.3) fL RDW Coeff of Hong (11.5-14.5) % Plt Count (130-400) K/uL MPV (7.4-10.4) fL Sodium 139 (136-145) mmol/L Potassium 4.7 (3.5-5.1) mmol/L Chloride 106 (98-107) mmol/L Carbon Dioxide 28 (21-32) mmol/L Anion Gap 5.0 (3-11) BUN 26 H (7-18) mg/dl Creatinine 1.49 H (0.6-1.2) mg/dl Est Cr Clr Drug Dosing 71.2 ml/min Est GFR ( Amer) 44.1 Est GFR (Non-Af Amer) 38.0 BUN/Creatinine Ratio 17.7 (10-20) Glucose 153 H (70-99) mg/dl POC Glucose 150 H (70-99) mg/dl Estimat Average Glucose 154 mg/dl Hemoglobin A1c 7.0 H (4.5-5.6) % Calcium 7.9 L (8.5-10.1) mg/dl Blood Type Antibody Screen 10/11/19 10/10/19 10/10/19 Range/Units 05:53 20:05 17:06 WBC 11.34 H (4.8-10.8) K/uL RBC 3.16 L (4.2-5.4) M/uL Hgb 9.6 L (12.0-16.0) g/dL Hct 29.7 L (37-47) % MCV 94.0 (80-100) fL MCH 30.4 (25-34) pg MCHC 32.3 (32-36) g/dL RDW Std Deviation 48.3 H (36.4-46.3) fL RDW Coeff of Hong 14.0 (11.5-14.5) % Plt Count 212 (130-400) K/uL MPV 9.5 (7.4-10.4) fL Sodium (136-145) mmol/L Potassium (3.5-5.1) mmol/L Chloride (98-107) mmol/L Carbon Dioxide (21-32) mmol/L Anion Gap (3-11) BUN (7-18) mg/dl Creatinine (0.6-1.2) mg/dl Est Cr Clr Drug Dosing ml/min Est GFR ( Amer) Est GFR (Non-Af Amer) BUN/Creatinine Ratio (10-20) Glucose (70-99) mg/dl POC Glucose 171 H 147 H (70-99) mg/dl Estimat Average Glucose mg/dl Hemoglobin A1c (4.5-5.6) % Calcium (8.5-10.1) mg/dl Blood Type Antibody Screen 10/10/19 10/10/19 10/10/19 Range/Units 12:20 10:55 05:39 WBC (4.8-10.8) K/uL RBC (4.2-5.4) M/uL Hgb (12.0-16.0) g/dL Hct (37-47) % MCV (80-100) fL MCH (25-34) pg MCHC (32-36) g/dL RDW Std Deviation (36.4-46.3) fL RDW Coeff of Hong (11.5-14.5) % Plt Count (130-400) K/uL MPV (7.4-10.4) fL Sodium (136-145) mmol/L Potassium (3.5-5.1) mmol/L Chloride (98-107) mmol/L Carbon Dioxide (21-32) mmol/L Anion Gap (3-11) BUN (7-18) mg/dl Creatinine (0.6-1.2) mg/dl Est Cr Clr Drug Dosing ml/min Est GFR ( Amer) Est GFR (Non-Af Amer) BUN/Creatinine Ratio (10-20) Glucose (70-99) mg/dl POC Glucose 195 H 180 H (70-99) mg/dl Estimat Average Glucose mg/dl Hemoglobin A1c (4.5-5.6) % Calcium (8.5-10.1) mg/dl Blood Type O Positive Antibody Screen NEGATIVE
--- NOTE | 2019-10-11 09:12 | Pharmacy Report ---
Pharmacy Glycemic Short Note 2 - Date of Service October 11, 2019 - Glycemic Short BSG Results (Last 24 hours): 10/10/19 10/10/19 10/10/19 10:55 12:20 17:06 Glucose POC Glucose 180 H 195 H 147 H 10/10/19 10/11/19 10/11/19 20:05 05:53 08:16 Glucose 153 H POC Glucose 171 H 150 H OUTPATIENT ANTIDIABETIC REGIMEN: * Metformin 500 mg PO BIDM * HbA1c of 7% (10/11/19) ASSESSMENT: * BE is a 59 year old female POD #1 s/p left TKA * Received IV dexamethasone in OR - covered with 38 units of Lantus * BSGs reasonably well-controlled yesterday (ranging 147-195 mg/dL) * Dexamethasone 8 mg PO ordered for this morning - will cover with Lantus PLAN FOR INPATIENT GLYCEMIC CONTROL: * Hold outpatient oral diabetes medications * Basal insulin * Lantus 20 units x 1 - give with dexamethasone 8 mg PO * Bolus insulin * NovoLog per scale ACHS or Q6hrs while NPO * Goal Range: Low 120 mg/dL - High 160 mg/dL * Correction Factor: 20 mg/dL/unit * Nutritional / Prandial insulin per carb ratio of 1 unit per 5 grams CHO consumed PLAN FOR DISCHARGE: * A reasonable A1C goal for many non- adults is A1c less than 7% * Would suggest titrating metformin up to a maximum dose of 1000 mg PO BIDM
--- NOTE | 2019-10-11 17:21 | Hospitalist Progress Note ---
Date of Service October 11, 2019 Assessment & Plan (1) Osteoarthritis of left knee: S/p TKA 10/09 Pain control, dvt proph per primary (2) Diabetes: Type II, controlled A1c 6.8% Pharm consult for glycemic management (3) HTN (hypertension): Hold losartan for tomorrow morning to avoid post op hypotension PRP am (4) Hypothyroid: Continue home levothyroxine (5) Hyperlipemia: Continue home statin (6) GERD (gastroesophageal reflux disease): Continue home PPI (7) Acute blood loss anemia: Hgb decreased to 9.6 from 13.1 Continue to monitor (8) CKD (chronic kidney disease), stage III: Creatinine is 1.49, baseline around 1.3. Will give 1L LR and hold losartan Admission and Anticipated Discharge Date Admission Date: October 10, 2019 Subjective Ms. Sloan is feeling well today. She has no complaints. ROS Constitutional: no chills, aches, sweats or fever Respiratory: no sob,cough, sputum, or wheezing Cardiac: no chest pain, palpitations, edema, orthopnea or lightheadedness GI: no abdominal pain, nausea, vomiting, diarrhea or constipation : no dysuria or hesitancy Extremities: no joint pain or weakness Skin: no rash All other systems reviewed and negative Physical Exam Physical Exam: General: no distress Eyes: normal inspection, PERLL Respiratory: chest non tender, clear to auscultation, normal breath sounds, no respiratory distress, no accessory muscle use Cardiac: regular rate and rhythm, no rub or gallop, no murmur, no edema, no jvd GI/: active bowel sounds, no abd pain or tenderness, soft, non distended Extremities: normal range of motion, normal strength, non tender Neuro/Psych: alert and oriented x 3, normal mood and affect Skin: normal color, dry Results & Data Results & Data ([facility]) Vital Signs (Past 12 Hours) Vital Signs Temp Pulse Resp BP BP Pulse Ox 10/11/19 15:07 36.5 C 89 20 138/80 96 10/11/19 13:46 86 L 10/11/19 11:12 36.7 C 93 H 16 118/73 93 10/11/19 07:14 36.5 C 95 H 16 113/70 95 PG Care Time/CCT Total # of Minutes Spent Total Time Spent with Patient: Total time spent is greater than 50% in coordination of care (as documented) at patient's floor/unit and/or counseling patient: Coding Level of Care Code 72703 Subseq Hosp Care Lvl 2 Diagnoses Osteoarthritis of left knee M17.12 Diabetes E11.9 HTN (hypertension) I10 Hypothyroid E03.9 Hyperlipemia E78.5 GERD (gastroesophageal reflux disease) K21.9 Acute blood loss anemia D62 CKD (chronic kidney disease), stage III N18.3
[2019-10-11] MEDS: ROSUVASTATIN CALCIUM 20 MG TAB PO SCH (20:13)
[2019-10-11] MEDS: ROPINIROLE HCL 1 MG TABLET PO SCH (20:13)
[2019-10-11] MEDS: SENNA 8.6 MG TAB PO SCH (20:14)
[2019-10-11] MEDS: CHOLECALCIFEROL 1,000 UNITS 25 MCG TAB PO SCH (20:15)
[2019-10-11] MEDS: CYANOCOBALAMIN 500 MCG TABLET (VITAMIN B-12) PO SCH (20:15)
[2019-10-11] MEDS: SERTRALINE HCL 100 MG TABLET PO SCH (20:16)
[2019-10-12] MEDS: ACETAMINOPHEN 500 MG TAB PO SCH ×2 (05:42→14:15)
[2019-10-12] MEDS: LEVOTHYROXINE SODIUM 150 MCG TABLET PO SCH (05:42)
[2019-10-12 06:12] LABS: Hematocrit (blood only) 27.5 % (37-47); Mean Corpuscular Hemoglobin 30.8 pg (25-34); Mean Corpuscular Hgb Conc 32.7 g/dL (32-36); Mean Corpuscular Volume 94.2 fL (80-100); Mean Platelet Volume 9.5 fL (7.4-10.4); Platelet Count 207 K/uL (130-400); RDW Coefficient of Variation 13.9 % (11.5-14.5); RDW Standard Deviation 47.8 fL (36.4-46.3); Red Blood Count 2.92 M/uL (4.2-5.4); White Blood Count 12.01 K/uL (4.8-10.8)
[2019-10-12] MEDS: OXYCODONE HCL IR 5 MG TAB (IMMEDIATE RELEASE) PO PRN ×3 (06:19→14:15)
[2019-10-12 06:43] LABS: BUN Creatinine Ratio 21.1 (10-20); Calcium 8.1 mg/dl (8.5-10.1); Creatinine Clr Calc Pharmacy 93.9 ml/min; Est GFR (African American) 61.6; Est GFR (Non-African American) 53.2; Potassium 4.2 mmol/L (3.5-5.1)
[2019-10-12] MEDS: PANTOprazole 40 MG TAB PO SCH (07:27)
[2019-10-12] MEDS: ASCORBIC ACID 500 MG TAB PO SCH ×2 (07:27→17:36)
[2019-10-12] MEDS: FERROUS GLUCONATE 324 MG TAB PO SCH ×2 (07:27→17:36)
[2019-10-12] MEDS: MULTIVITAMIN TAB PO SCH (07:27)
[2019-10-12] MEDS: ENOXAPARIN INJ 30 MG/0.3 ML SYR SQ SCH (07:27)
[2019-10-12] MEDS: DOCUSATE SODIUM 100 MG CAP PO SCH (08:40)
[2019-10-12] MEDS: INSULIN ASPART 100 UNITS/ML 3 ML PEN SC SCH ×3 (08:42→17:31)
--- NOTE | 2019-10-12 09:25 | Orthopedic Progress Note ---
Date of Service October 12, 2019 Assessment & Plan (1) Osteoarthritis of left knee: POD #2 s/p Left TKA Hgb 9. Continue to monitor. Decreased O2 sats last evening at 87. Currently 90 on room air. O2 nasal canula per protocol. Encourage continued use of spirometry. Continue DM diet. WBAT with walker and assistance as needed. Continue PT/OT. Continue PO meds for pain control. Continue Ice. Continue elevation. DVT prophylaxis: knee high TEDs 3 weeks, foot pumps while in hospital, Lovenox s tart 10/11/2019 am BID for 3 weeks followed by ASA 325mg BID for another 3 weeks. Continue Prevena wound vac x 7 days. D/C planning to [facility]. Referral accepted and authorization obtained. Appreciate medicine input for medical management. They feel she is stable for d/c. Bing to see this PM. I, Dr. Smart, saw and examined the patient and discussed the management with my PA. I reviewed my PAs note and agree with the documented findings and the plan of care I developed. Patient is ok for d/c today, hospital services noted she is medically stable for d/c. Admission and Anticipated Discharge Date Admission Date: October 10, 2019 Subjective Patient in bed. Says her knee is sore but PO pain meds helping. Required O2 last evening bc of decreased 02 sats. Denies f/c/s, CP, SOB at rest, lightheadedness or dizziness, or cough. Says gets SOB with walking and sometimes feels chest is congested. Has been using spirometry. Working on referral to [facility]. No word yet on ins auth. Patient tolerated PO diet and PO fluids. No BM yet. Urinating ok. Physical Exam Physical Exam: Resting in bed. No O2 being used. No distress. Breathing nonlabored. Left knee Provena intact. Min drainage in cannister. NV B LE. Calves soft and nontender. Palpable DP and PT pulses. Able to wiggle toes and ankles. Sensation intact. Results & Data ([facility]) Vital Signs (Past 12 Hours) Vital Signs Temp Pulse Pulse Resp BP BP Pulse Ox 10/12/19 08:16 36.6 C 93 H 18 114/70 90 10/12/19 06:26 95 10/12/19 03:41 94 H 18 95 10/11/19 23:32 36.6 C 98 H 16 126/79 90 10/11/19 23:30 86 L 10/11/19 22:24 78 16 92 10/11/19 22:18 16 93 Laboratory Results 10/12/19 10/12/19 10/12/19 Range/Units 08:21 05:49 05:49 WBC 12.01 H (4.8-10.8) K/uL RBC 2.92 L (4.2-5.4) M/uL Hgb 9.0 L (12.0-16.0) g/dL Hct 27.5 L (37-47) % MCV 94.2 (80-100) fL MCH 30.8 (25-34) pg MCHC 32.7 (32-36) g/dL RDW Std Deviation 47.8 H (36.4-46.3) fL RDW Coeff of Hong 13.9 (11.5-14.5) % Plt Count 207 (130-400) K/uL MPV 9.5 (7.4-10.4) fL Sodium 138 (136-145) mmol/L Potassium 4.2 (3.5-5.1) mmol/L Chloride 104 (98-107) mmol/L Carbon Dioxide 29 (21-32) mmol/L Anion Gap 4.0 (3-11) BUN 24 H (7-18) mg/dl Creatinine 1.13 D (0.6-1.2) mg/dl Est Cr Clr Drug Dosing 93.9 ml/min Est GFR ( Amer) 61.6 Est GFR (Non-Af Amer) 53.2 BUN/Creatinine Ratio 21.1 H (10-20) Glucose 130 H (70-99) mg/dl POC Glucose 147 H (70-99) mg/dl Calcium 8.1 L (8.5-10.1) mg/dl 10/11/19 10/11/19 10/11/19 Range/Units 20:30 17:18 12:03 WBC (4.8-10.8) K/uL RBC (4.2-5.4) M/uL Hgb (12.0-16.0) g/dL Hct (37-47) % MCV (80-100) fL MCH (25-34) pg MCHC (32-36) g/dL RDW Std Deviation (36.4-46.3) fL RDW Coeff of Hong (11.5-14.5) % Plt Count (130-400) K/uL MPV (7.4-10.4) fL Sodium (136-145) mmol/L Potassium (3.5-5.1) mmol/L Chloride (98-107) mmol/L Carbon Dioxide (21-32) mmol/L Anion Gap (3-11) BUN (7-18) mg/dl Creatinine (0.6-1.2) mg/dl Est Cr Clr Drug Dosing ml/min Est GFR ( Amer) Est GFR (Non-Af Amer) BUN/Creatinine Ratio (10-20) Glucose (70-99) mg/dl POC Glucose 199 H 192 H 170 H (70-99) mg/dl Calcium (8.5-10.1) mg/dl
--- NOTE | 2019-10-12 12:42 | Pharmacy Report ---
Pharmacy Glycemic Short Note 2 - Date of Service October 12, 2019 - Glycemic Short BSG Results (Last 24 hours): 10/11/19 10/11/19 10/12/19 17:18 20:30 05:49 Glucose 130 H POC Glucose 192 H 199 H 10/12/19 10/12/19 08:21 12:09 Glucose POC Glucose 147 H 130 H OUTPATIENT ANTIDIABETIC REGIMEN: * Metformin 500 mg PO BIDM * HbA1c of 7% (10/11/19) ASSESSMENT: 10/11 * Patient received total of 53 units of insulin yesterday, of which 20 were basal insulin to help cover steroids * Fasting BSG this am 130 mg/dL - is w/in range. No steroids ordered therefore will hold basal insulin * Anticipate steroids effects to wear off later today, plan to loosen CF/CR with dinner PLAN FOR INPATIENT GLYCEMIC CONTROL: * Hold outpatient oral diabetes medications * Basal insulin * hold * Bolus insulin * NovoLog per scale ACHS or Q6hrs while NPO * Goal Range: Low 120 mg/dL - High 160 mg/dL * Correction Factor: 30 mg/dL/unit * Nutritional / Prandial insulin per carb ratio of 1 unit per 8 grams CHO consumed PLAN FOR DISCHARGE: * A reasonable A1C goal for many non- adults is A1c less than 7% * Would suggest titrating metformin up to a maximum dose of 1000 mg PO BIDM
--- NOTE | 2019-10-12 14:56 | XRay Report ---
XR chest 2V PA/lateral CLINICAL HISTORY: sob COMPARISON STUDY: 11/03/2018 FINDINGS: The heart is enlarged. There is borderline elevation the right hemidiaphragm. Increased mar kings likely related to technical factors given the patient's large body habitus. There is no lobar c onsolidation.[No significant pleural effusions are evident. IMPRESSION: 1. Cardiomegaly 2. No evidence of focal pulmonary consolidation 3. Mild interstitial prominence but no evidence of overt failure ACT 112: Negative or not required by law. Electronically signed by: Freddie Hope M.D. 10/12/2019 2:55 PM
--- NOTE | 2019-10-12 15:09 | Hospitalist Progress Note ---
Date of Service October 12, 2019 Assessment & Plan (1) Osteoarthritis of left knee: S/p TKA 10/09 Pain control, dvt proph per primary (2) ELIZABETH (acute kidney injury): Mild post op, now resolved (3) SOB (shortness of breath): Patient reports sob is not unusual for her, at baseline she does have some difficulty with sob with ambulation which she attributes to her weight. She also had two low readings over the night on her CPAP which was on RA. CXR was clear with slightly prominent markings, likely secondary to body habitus. Recommend she have oxygen added to her CPAP at 2L. Encourage incentive spirometry and keep head of bed above 45 degrees. (4) Diabetes: Type II, controlled A1c 6.8% Pharm consult for glycemic management (5) HTN (hypertension): Resume losartan at discharge PRP am (6) Hypothyroid: Continue home levothyroxine (7) Hyperlipemia: Continue home statin (8) GERD (gastroesophageal reflux disease): Continue home PPI Medicine will sign off at this time, patient for [facility] this afternoon. Admission and Anticipated Discharge Date Admission Date: October 10, 2019 Subjective Ms. Sloan is feeling well except for some sob with ambulation which she says is not unusual for her. ROS Constitutional: no chills, aches, sweats or fever Respiratory: no cough, sputum, or wheezing Cardiac: no chest pain, palpitations, edema, orthopnea or lightheadedness GI: no abdominal pain, nausea, vomiting, diarrhea or constipation : no dysuria or hesitancy Extremities: no joint pain or weakness Skin: no rash All other systems reviewed and negative Physical Exam Physical Exam: General: no distress Eyes: normal inspection, PERLL Respiratory: chest non tender, clear to auscultation, normal breath sounds, no respiratory distress, no accessory muscle use Cardiac: regular rate and rhythm, no rub or gallop, no murmur, no edema, no jvd GI/: active bowel sounds, no abd pain or tenderness, soft, non distended Extremities: normal range of motion, normal strength, non tender Neuro/Psych: alert and oriented x 3, normal mood and affect Skin: normal color, dry Results & Data Results & Data ([facility]) Vital Signs (Past 12 Hours) Vital Signs Temp Pulse Pulse Resp BP Pulse Ox 10/12/19 08:16 36.6 C 93 H 18 114/70 90 07/09/20 06:26 95 10/12/19 03:41 94 H 18 95 PG Care Time/CCT Total # of Minutes Spent Total Time Spent with Patient: Total time spent is greater than 50% in coordination of care (as documented) at patient's floor/unit and/or counseling patient: Coding Level of Care Code 17198 Subseq Hosp Care Lvl 2 Diagnoses Osteoarthritis of left knee M17.12 ELIZABETH (acute kidney injury) N17.9 SOB (shortness of breath) R06.02 Diabetes E11.9 HTN (hypertension) I10 Hypothyroid E03.9 Hyperlipemia E78.5 GERD (gastroesophageal reflux disease) K21.9
--- NOTE | 2019-10-13 10:17 | Discharge Summary ---
Date of Service October 13, 2019 Principal Diagnosis Left Knee Osteoarthritis Discharge Data Allergies Allergy/AdvReac Type Severity Reaction Status Date / Time morphine Allergy Severe RESPIRATORY Verified 09/20/19 14:41 DISTRESS/KIDNEY FAILURE oxycodone Allergy Severe RESPIRATORY Verified 09/20/19 14:41 DISTRESS/KIDNEY FAILURE Penicillins Allergy Intermediate HIVES Verified 09/20/19 14:41 Corticosteroids Allergy Unknown FLUSHED Verified 09/20/19 14:41 (Glucocorticoids) levofloxacin [From Levaquin] Allergy Unknown Unknown Verified 09/20/19 14:41 dexamethasone AdvReac Mild flushed Verified 09/20/19 14:41 Consultations 10/10/19 12:22 Consult Case Management - Discharge Planning Routine Consult Hospitalist Routine Procedures Performed Operation Date: 10/10/19 07:00 Actual Procedures p Left Total Knee Arthroplasty(Left) - Richard Christine Smart MD Ordered Studies 10/10/19 05:00 US - OR guided needle placemen Routine Hospital Course (1) Osteoarthritis of left knee: 59 yr old obese female with 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 Surgical procedure was without complication but patient did require general anesthestic intra-op due to motion of legs during surgery with left femoral nerve block and epidural. She lost 800cc of blood. After surgery she was transferred to Med/Surg. Hospitalist was consulted. POD 1 labs HGB dropped to 9.6 and on POD 2 to 9. She displayed no S/S of anemia and no transfusion was necessary. Her O2 sats on POD 2 early AM dropped to 87 and was placed on O2 with her CPAP. Sats improved. She denied any SOB at rest. Complained of SOB with walking but also stated has at baseline. Medicine performed CXR and it was clear. Medicine deemed stable to be discharged with recommendations of she have oxygen added to her CPAP at 2L. Encourage incentive spirometry and keep head of bed above 45 degrees. Patient initally required a few doses of IV pain meds but eventually pain improved to only requiring PO meds. By POD2 pm patient was doing well. She tolerated PO fluids and diabetic diet. She worked with PT and OT, ambulating with walker. DVT prophylaxis inhouse consisted of foot pumps, lovenox, and knee high samuel hose. Provena wound vac remained intact. On POD 2 patient discharged to [facility]. Please see below for Discharge Plan and instructions. Patient to remain WBAT with walker. Provena for 7days. At f/u appointment will remove and apply silverlon waterproof dressing for another 7 days. DVT propohylaxis includes TEDS x 3wks, Lovenox 30mg SQ BID x 3wks, then ASA 325mg BID x 3wks. Patient discharged with new meds also to include Vit C and Iron for 2wks, Oxycodone as needed for severe pain. Recommending tylenol for mild to moderate pain as well as OTC stool softners for constipation, and OTC meds if needed for heartburn. Patient advised to call the office with any questions or concerns. She was instructed to go to ED with any emergent concerns such as acute SOB at rest or chest pain. She has a 1wk and 2wk fu appointment scheduled at our office. Total Time Total Time Spent Total Time Spent (In Minutes): 20 Discharge Plan Discharge Items Patient Disposition: Transfer Inpatient Rehab Fac Reason For Visit: Left Knee Osteoarthritis Discharge Diagnosis: left knee osteoarthritis Activity: Per Instructions section Weightbearing: Full weightbearing Weightbearing Comment: as tolerated with walker Non-emergency contact: Surgeon Call non-emergency contact if: your pain is not controlled, your temperature is above 101.5, your wound has increased redness and your wound has increased drainage Follow-up/Referrals: Richard Smart MD [Physician] - 10/17/19 11:15 am (with Sylvie Rose PA-c for Provena removal/wound check; 10-24 at 11:15am with Sylvie Rose PA-c for Zip Line removal/wound check) Isha Diallo DO [Primary Care Provider] - Diet: Carb Consistent or DM2 Addtl Attending Provider Instructions: Post-operative Instructions Pain Expect to be in a fair amount of pain after surgery. Remember, our goal is not to eliminate your pain, but to make it tolerable. It is a good idea to stay ahead of your pain by taking the medications you were prescribed once you get home. Typically, the pain starts improving 3-7 days after surgery. You should start weaning off the narcotic pain medication (oxycodone) as soon as your pain improves. Please call our office if your pain is not adequately controlled. You can take tylenol 1000mg every 8hrs for mild to moderate pain. Ice Ice your operative site at least 5 times a day for 15-30 minutes at a time. Make sure you have a thin cloth between the ice or cooling unit and your skin to prevent duncan bite. This is especially important if you received a nerve block. Continue icing your operative site for the first 5-7 days after surgery, then as needed. Diet/Nausea/Vomiting Start by drinking clear liquids and eating crackers. If you can tolerate this, then you may resume your normal diet. If you feel nauseated or vomit, take Zofran/ondansetron (if prescribed). Please call our office if you have intractable nausea or vomiting, or, if after hours, you may go to the Emergency Room for help. Constipation Constipation is a common side effect of narcotic pain medication. If you have not had a bowel movement within 2 days after surgery, we recommend purchasing an over the counter laxative such as Milk of Magnesia, Dulcolax, or Miralax from a local pharmacy, and taking it as instructed. Call our clinic if any questions. Weight bearing and Range of Motion. Weightbearing as tolerated with walker. No restrictions with range of motion. Physical therapy Initially you will start with Inpatient Rehab. From there you will receive home health therapy. At our first visit with at our office we will provide you with script for outpatient physical therapy. Wound care and showering Provena wound vac for 7 days. Follow-up in office 7 days post-op. A water-proof dressing will be placed that is removed 14 days after surgery. It is normal to see some dried blood on the dressing. Do not remove your dressing, paper strips or sutures yourself unless you are given permission. Showering is allowed the day after surgery. Do not scrub or remove any dressings. The wound should not be submerged underwater (i.e. in a bathtub or pool) until 4 weeks after surgery SAMUEL stockings If you were given white stockings, these are to be worn at all times except to shower and sleep (on both legs) for the first 2 weeks after surgery. We will discuss removal at your first follow-up appointment. Incentive Spirometry Encouraged every hour until has improved mobility and ambulation Driving You may not drive while taking narcotic pain medication. We will discuss return to driving at your first follow-up appointment. Return To Work Your return to work depends on what surgery was done and what type of work you do. Please bring any paperwork your employer needs completed to your first post-operative visit. Also, bring a description of your job duties, as this helps us to understand what risks you may face at work. Travel Avoid long distance travel (greater than 1 hour) in airplanes and cars for the first 6 weeks after surgery if possible. If you must travel, please let us know so we can discuss additional measures to prevent blood clots. Follow-up You should have a follow-up appointment already scheduled for 1 and 2 weeks after surgery. If not, please contact our office to make this appointment before you leave the hospital. When to call the office [phone] It is normal to have swelling and bruising in the limb that was operated on. This will improve with time. It is also normal to have fevers for the first 2 days after surgery. Reasons you should call your doctor include: Uncontrolled pain; Nausea, vomiting, or constipation that does not improve with medication; Fevers over 101.5, chills, sweats; Drainage or bleeding from the wound; Foul odor; Spreading areas of redness; Any other concerns. NEW MEDICATIONS: new medications will be sent to your pharmacy: oxycodone, iron, vit c, tylenol, and lovenox. 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 Sloan stay she had two low oxygen saturation readings in the mid 80s during the night on CPAP. May want to add Oxygen to her CPAP over the night, 2L. Encourage incentive spirometry and sleeping with head of bed at 45 degrees. CXR was clear Pending Studies at Discharge: No Stand-Alone Forms: My [employer], Smoking Cessation Skilled Items Patient informed of condition?: Yes DNR: No Discharge Level of Care: Acute rehab Communicable Disease: No Discharge Prognosis: Improving Lines: None Urinary Catheter: No Medications and DC Order Prescriptions: New oxycodone 5 mg Tablet 5 - 10 mg PO Q4H PRN (Reason: pain) Qty: 30 RF: 0 ascorbic acid (vitamin C) [Vitamin C] 500 mg Tablet 500 mg PO BIDM 14 Days Qty: 28 RF: 0 enoxaparin [Lovenox] 30 mg/0.3 mL Syringe 30 mg subcut Q12H 20 Days Qty: 12 RF: 0 ferrous gluconate 324 mg (38 mg iron) Tablet 324 mg PO BIDM 14 Days Qty: 28 RF: 0 Continued cyanocobalamin (vitamin B-12) 100 mcg tablet 500 mcg PO QPM RF: 0 (DME) CPAP Supplies Misc See Dose Instructions .ROUTE .MEDSUPPLY Qty: 1 RF: 0 metformin 500 mg tablet 500 mg PO BID RF: 0 ropinirole 1 mg tablet 3 mg PO HS RF: 0 sertraline 100 mg tablet 100 mg PO HS RF: 0 levothyroxine 150 mcg tablet 150 mcg PO QAM RF: 0 rosuvastatin 40 mg tablet 40 mg PO HS RF: 0 omega-3 fatty acids-fish oil [Fish Oil] 360-1,200 mg Capsule 1 cap PO QPM RF: 0 Women's 50 Plus Multivitamin 400 mcg-500 mg calcium-20 mcg Tablet 1 tab PO QPM RF: 0 losartan 25 mg Tablet 25 mg PO HS RF: 0 omeprazole 20 mg Capsule,Delayed Release(Dr/Ec) 20 mg PO QAM RF: 0 cholecalciferol (vitamin D3) [Vitamin D3] 50 mcg (2,000 unit) Capsule 50 mcg PO QPM RF: 0 chromium picolinate 500 mcg PO QPM RF: 0 acetaminophen [Tylenol Extra Strength] 500 mg Tablet 1,000 mg PO Q6H PRN (Reason: Pain) RF: 0 Discontinued ascorbic acid (vitamin C) 500 mg tablet 500 mg PO QPM RF: 0 vitamin E 400 unit Capsule 400 unit PO QPM RF: 0 ibuprofen [Advil] 200 mg Tablet 600 mg PO Q6H PRN (Reason: Pain) RF: 0 Icy Hot 30-10 % Stick 1 applic TOPICAL HS PRN (Reason: Pain) RF: 0 Discharge Orders: Discharge Order (Routine); Ordered 10/12/19 Ordered By: Xi Robertson/Other Patient Handouts: Managing Diabetes: The A1C Test Admission Data Admit Date/Time: 10/10/19 11:11 Attending Provider: Richard Smart Admit Provider: Richard Smart Primary Care Provider: Isha Diallo Other Providers: Vineet Mckay ; [facility] Other Interventions: Discharge Summary Assessment (RN) Last Done: 10/12/19 16:31 DC Date/Time DO NOT enter until pt leaves facility: 10/12/19 18:40 Supervising Physician Co-Signing Physician Notes Patient seen and examined with Izzy HUERTA. I agree with her exam findings, review of systems, assessment and plan. I personally reviewed the lab work and imaging as well. patient doing well post op, no immediate complications encourage deep breathing, advance diet check labs in AM - HTN: hold ARB until BMP checked - s/p TKA: management per ortho, encourage ISB use
== END 2019-10-12 18:40 | DRG 470 ==
LOC: ASU 05:13 → 3E 11:11 → 1E 12:09 → 3E 12:11